=== PATIENT | male | born 1980 | race Caucasian/White ===

== ENCOUNTER 2021-06-05 10:43 | Emergency (ER) | payer MEDICAID, OTHER ==
[~2021-06-05] VITALS: Ht 170.2 cm; Wt 100.0 kg
[2021-06-05] MEDS ORDERED: RIVA10TA PO (11:04)
[2021-06-05] MEDS ORDERED: CEFTRIAXONE 1 G PREMIX 50 ML IV ONE (12:15)
[2021-06-05] MEDS ORDERED: ACETAMINOPHEN 325MG TABLET PO STA (12:15)
[2021-06-05 12:45] LABS: BASOPHILS % 0.2 % (0.0-2.0); EOSINOPHILS % 0.3 % (0.0-5.0); LYMPHOCYTES % 10.7 % (20.0-50.0); MEAN CORPUSCULAR HEMOGLOBIN 31.1 pg (28.0-32.0); MEAN CORPUSCULAR VOLUME 90.6 fL (80.0-94.0); MEAN PLATELET VOLUME 9.9 fl (7.4-10.4); MONOCYTES % 5.1 % (2.0-8.0); NEUTROPHILS % 83.7 % (40.0-76.0); PLATELET 128 x1000/uL (130-400); RED BLOOD CELL COUNT 4.19 mill/uL (4.7-6.1); RED CELL DISTRIBUTION WIDTH 13.9 % (11.6-14.6)
[2021-06-05 12:48] LABS: CHLORIDE 109 mEq/L (98-107)
[2021-06-05 14:00] VITALS: BP 129/67
[2021-06-05] MEDS ORDERED: AMOX-424 MT (14:23)
== END 2021-06-05 14:54 | disposition home or self-care (01) ==
LOC: ER 10:52
DX: R50.9 Fever, unspecified (principal); J18.9 Pneumonia, unspecified organism; I10 Essential (primary) hypertension; I48.20 Chronic atrial fibrillation, unspecified; I48.91 Unspecified atrial fibrillation; Z79.01 Long term (current) use of anticoagulants; Z92.29 Personal history of other drug therapy; Z20.822 Contact with and (suspected) exposure to COVID-19
CPT/HCPCS: 36415; 71045; 80048; 80076; 83605; 84145; 84484; 85025; 93005; 96365; 99285; C9803; J0696; U0003; U0005